=== PATIENT | male | born 1940 | race American Indian/Alaskan Native ===

== ENCOUNTER 2018-09-05 02:30 | Inpatient (IN) | payer MEDICARE ==
[2018-09-05] MEDS ORDERED: NACL 0.9% 1000 ML 1,000 ML IV ONE ×2 (02:48→02:49)
[2018-09-05] MEDS ORDERED: ZOSYN/NS 3.375GM/50ML 3.375 GM/50 ML BAG IV ONE (02:49)
[2018-09-05] MEDS ORDERED: ZOFRAN IV ONE (02:54)
--- NOTE | 2018-09-05 02:54 | Emergency Department Report ---
ED General Adult HPI - General Stated complaint: EMESIS Time Seen by Provider: 09/05/18 02:47 - History of Present Illness Initial comments: Patient is a 78 years old male with history of Parkinson disease, hypertension, diabetes, prostate cancer with chronic urinary retention and Tineo catheter in place. Patient brought from [facility] facility for coffee ground emesis. Patient was admitted to the senior care yesterday after he was dis charged from [facility]. Patient was admitted for encephalopathy secondary to Parkinson disease progression and found to have UTI. Patient is not communicating so most of the history is from patient medical record. Patient found to have a temperature of 99.9. "Sepsis initiated. - Related Data Home Medications Medication Instructions Recorded Confirmed Last Taken Aspirin [Aspirin EC] 325 mg PO DAILY 09/24/14 09/24/14 09/23/14 09:00 Atorvastatin Calcium [Lipitor] 20 mg PO QHS 09/24/14 09/24/14 Unknown Carbidopa/Levodopa 25 - 100 mg PO TID 09/24/14 09/24/14 Unknown [Carbidopa-Levodopa 25-100 Tab] Ciprofloxacin HCl [Ciprofloxacin 250 mg PO BID 09/24/14 09/24/14 09/23/14 17:00 TAB] Clopidogrel [Plavix] 75 mg PO QDAY 09/24/14 09/24/14 Unknown Glimepiride 2 mg PO BID 09/24/14 09/24/14 09/23/14 Lisinopril [Zestril TAB] 5 mg PO QDAY 09/24/14 09/24/14 Unknown Loratadine 10 mg PO DAILY 09/24/14 09/24/14 09/23/14 Metformin HCl 1,000 mg PO BID 09/24/14 09/24/14 09/23/14 09:00 Nitroglycerin [Nitrostat] 0.4 mg SL PRN PRN 09/24/14 09/24/14 Unknown oxyCODONE /ACETAMINOPHEN [Percocet 1 tab PO Q6HR PRN 09/24/14 09/24/14 09/23/14 17:00 5/325 mg] Allergies Allergy/AdvReac Type Severity Reaction Status Date / Time No Known Allergies Allergy Unverified 09/24/14 08:30 ED Review of Systems ROS: Stated complaint: EMESIS Other details as noted in HPI Comment: Unobtainable due to pts medical conditions ED Past Medical Hx - Past Medical History Hx Hypertension: Yes Hx Heart Attack/AMI: No Hx Diabetes: Yes Hx Liver Disease: No Hx Renal Disease: No Hx Arthritis: Yes (GENERALIZED) Hx Seizures: No Hx Kidney Stones: Yes Hx Asthma: No Hx HIV: No - Surgical History Hx Coronary Stent: Yes (2006/PTCA) - Social History Smoking Status: Former Smoker - Medications Home Medications: Home Medications Medication Instructions Recorded Confirmed Last Taken Type Aspirin [Aspirin EC] 325 mg PO DAILY 09/24/14 09/24/14 09/23/14 09:00 History Atorvastatin Calcium [Lipitor] 20 mg PO QHS 09/24/14 09/24/14 Unknown History Carbidopa/Levodopa 25 - 100 mg PO TID 09/24/14 09/24/14 Unknown History [Carbidopa-Levodopa 25-100 Tab] Ciprofloxacin HCl [Ciprofloxacin 250 mg PO BID 09/24/14 09/24/14 09/23/14 17:00 History TAB] Clopidogrel [Plavix] 75 mg PO QDAY 09/24/14 09/24/14 Unknown History Glimepiride 2 mg PO BID 09/24/14 09/24/14 09/23/14 History Lisinopril [Zestril TAB] 5 mg PO QDAY 09/24/14 09/24/14 Unknown History Loratadine 10 mg PO DAILY 09/24/14 09/24/14 09/23/14 History Metformin HCl 1,000 mg PO BID 09/24/14 09/24/14 09/23/14 09:00 History Nitroglycerin [Nitrostat] 0.4 mg SL PRN PRN 09/24/14 09/24/14 Unknown History oxyCODONE /ACETAMINOPHEN [Percocet 1 tab PO Q6HR PRN 09/24/14 09/24/14 09/23/14 17:00 History 5/325 mg] ED Physical Exam - General General appearance: obtunded - Head Head exam: Present: atraumatic, normocephalic, normal inspection - Eye Eye exam: Present: normal appearance - ENT ENT exam: Present: mucous membranes dry - Neck Neck exam: Present: normal inspection, full ROM. Absent: tenderness, meningismus, lymphadenopathy, thyromegaly - Respiratory Respiratory exam: Present: normal lung sounds bilaterally - Cardiovascular Cardiovascular Exam: Present: regular rate, normal rhythm, normal heart sounds - GI/Abdominal GI/Abdominal exam: Present: soft, normal bowel sounds. Absent: distended, tenderness, guarding, rebound, rigid, organomegaly, mass, bruit, pulsatile mass, hernia - Rectal Rectal exam: Present: normal inspection, normal rectal tone, heme (-) stool - Extremities Exam Extremities exam: Present: normal inspection - Back Exam Back exam: Present: normal inspection, full ROM. Absent: CVA tenderness (R), CVA tenderness (L), muscle spasm, paraspinal tenderness, vertebral tenderness - Neurological Exam Neurological exam: Present: altered - Skin Skin exam: Present: warm, dry ED Course Vital Signs 09/05/18 09/05/18 09/05/18 02:39 03:00 03:09 Temperature 99.6 F Pulse Rate 97 H 94 H Respiratory 26 H 20 Rate Blood Pressure 126/76 147/82 142/75 O2 Sat by Pulse 99 Oximetry 09/05/18 09/05/18 09/05/18 03:30 04:00 04:23 Temperature Pulse Rate 103 H 104 H Respiratory 29 H 21 20 Rate Blood Pressure 118/66 141/89 O2 Sat by Pulse Oximetry ED Medical Decision Making - Lab Data Result diagrams: 09/05/18 03:01 09/05/18 03:01 - Radiology Data Radiology results: report reviewed Chest x-ray is unremarkable. - Medical Decision Making Patient is a 78 years old male with history of Parkinson disease, hypertension, diabetes, prostate cancer with chronic urinary retention and Tineo catheter in place. Patient brought from [facility] facility for coffee ground emesis. Patient was admitted to the senior care yesterday after he was discharged from [place]. Patient was admitted for encephalopathy secondary to Parkinson disease progression and found to have UTI. Patient is not communicating so most of the history is from patient medical record. Patient found to have a temperature of 99.9. "Sepsis initiated. The ground emesis observed in the ER. Stool Hemoccult is negative. Labs reviewed and is unremarkable. Patient received Zosyn FOR suspected sepsis. Protonix drip started. I discussed the patient is Dr. Dudley, gastroenterologis t. I discussed the patient is Dr. Janay France, she agreed to admit the patient to medical service. Critical Care Time: Yes Critical care time in (mins) excluding proc time.: 30 Critical care attestation.: If time is entered above; I have spent that time in minutes in the direct care of this critically ill patient, excluding procedure time. ED Disposition Clinical Impression: GI bleed, Sepsis, UTI (urinary tract infection) Disposition: OP ADMIT IP TO THIS HOSP Is pt being admited?: Yes Condition: Stable Referrals: PRIMARY CARE, [Primary Care Provider] - 3-5 Days
--- NOTE | 2018-09-05 03:12 | XRay Report ---
CHEST 1 VIEW 09/05/2018 2:51 AM INDICATION / CLINICAL INFORMATION: Sepsis. COMPARISON: None available. FINDINGS: SUPPORT DEVICES: None. HEART / MEDIASTINUM: No significant abnormality. LUNGS / PLEURA: The lungs are clear with reduced volumes. No significant pleural effusion. No pneumot horax. ADDITIONAL FINDINGS: No significant additional findings. IMPRESSION: No acute findings. Signer Name: Guillermo Richard MD Signed: 09/05/2018 3:08 AM Workstation Name: [id number]
[2018-09-05 03:20] LABS: Basophils % (Auto) 0.3 % (0.0-1.8); Eosinophils # (Auto) 0.1 K/mm3 (0.0-0.4); Eosinophils % (Auto) 1.1 % (0.0-4.3); Hematocrit 39.7 % (35.5-45.6); Hemoglobin 13.2 gm/dl (11.8-15.2); Lymphocytes # (Auto) 0.6 K/mm3 (1.2-5.4); Mean Corpuscular HGB Conc 33 % (32-34); Mean Corpuscular Volume 86 fl (84-94); Monocytes # (Auto) 0.7 K/mm3 (0.0-0.8); Monocytes % (Auto) 7.3 % (0.0-7.3); Platelet Count 238 K/mm3 (140-440); Red Cell Distribution Width 13.9 % (13.2-15.2)
[2018-09-05 03:35] LABS: Alanine Aminotransferase 16 units/L (7-56); Albumin 3.5 g/dL (3.9-5); BUN/Creatinine Ratio 24; Blood Urea Nitrogen 24 mg/dL (9-20); Calcium 8.6 mg/dL (8.4-10.2); Hemolysis Index 3
[2018-09-05 04:31] LABS: Bilirubin,Urine NEG (Negative); Blood,Urine LG (Negative); Color,Urine Yellow (Yellow); Mucus,Urine 3+ /HPF
[2018-09-05 04:32] LABS: RBC,Urine > 182.0 /HPF (0.0-6.0); WBC,Urine > 182.0 /HPF (0.0-6.0)
[2018-09-05] MEDS ORDERED: ZOFRAN IV PRN (05:02)
[2018-09-05] MEDS ORDERED: TYLENOL PO PRN (05:02)
[2018-09-05] MEDS ORDERED: SODIUM CHLORIDE FLUSH SYRINGE 10 ML IV PRN (05:02)
--- NOTE | 2018-09-05 05:05 | History and Physical Report ---
History of Present Illness History of present illness: 78 year old man with Parkinsons, hypertension, diabetes, prostate cancer, CAD was brought to the ER because he was noted to have coffee ground emesis. He was just discharged from [facility], he was treated for Parkinsons. History per family, ROS unobtainable PAST MEDICAL HISTORY: Parkinsons, hypertension, diabetes, prostate cancer, CAD PAST SURGICAL HISTORY: None SOCIAL HISTORY: No alcohol, denies tobacco, drugs FAMILY HISTORY: Hypertension Medications and Allergies Allergies Allergy/AdvReac Type Severity Reaction Status Date / Time No Known Allergies Allergy Unverified 09/24/14 08:30 Home Medications Medication Instructions Recorded Confirmed Last Taken Type Acetaminophen 325 mg PO TID PRN 09/05/18 09/05/18 Unknown History Aspirin [Aspirin BABY CHEW TAB] 81 mg PO QDAY 09/05/18 09/05/18 Unknown History AtorvaSTATin [Lipitor] 20 mg PO QHS 09/05/18 09/05/18 Unknown History Carbidopa/Levodopa 25-100 [Sinemet] 1 each PO QHS 09/05/18 09/05/18 Unknown History Carbidopa/Levodopa [Carbidopa-Levo 1 each PO TID 09/05/18 09/05/18 Unknown History 25-100 mg Odt] Cholecalciferol (Vitamin D3) 50,000 unit PO QDAY 09/05/18 09/05/18 Unknown History [Vitamin D3 50,000UNIT CAP] Cyanocobalamin (Vitamin B-12) 1,000 mcg PO QDAY 09/05/18 09/05/18 Unknown History [Vitamin B-12] Docusate Sodium [Colace] 100 mg PO BID PRN 09/05/18 09/05/18 Unknown History Finasteride [Proscar] 5 mg PO QDAY 09/05/18 09/05/18 Unknown History Folic Acid [Folvite] 1 mg PO QDAY 09/05/18 09/05/18 Unknown History Multivitamin Tab [Multiple Vitamin 1 each PO QDAY 09/05/18 09/05/18 Unknown History TAB (Theragran)] Nutritional Supplement [Ensure] 113 g PO TID 09/05/18 09/05/18 Unknown History Sennosides [Senokotxtra] 17.2 mg PO QHS 09/05/18 09/05/18 Unknown History Tamsulosin [Flomax] 0.4 mg PO QDAY 09/05/18 09/05/18 Unknown History Active Meds: Active Medications Pantoprazole Sodium 80 mg/ (Sodium Chloride) 100 mls @ 10 mls/hr IV DIRECT ROHIT Exam - Physical Exam Narrative exam: Gen. appearance: Patient lying in bed, no apparent distress HEENT: Normocephalic, atraumatic, pupils equally round and reactive to light, extraocular movement intact, and no sclericterus,. No JVD or thyromegaly or nodule,neck supple, no carotid bruit ,mucous membranes moist, no exudate or erythema Heart: S1, S2, regular rate and rhythm Lungs: Clear bilaterally, breathing comfortable Abdomen: Positive bowel sounds, non-tender, nondistended, no organomegaly Extremity:no edema cyanosis, clubbing Skin: no rash, dry, warm Neuro: difficult to assess stool: heme negative - Constitutional Vitals: Temp Pulse Resp BP Pulse Ox 99.6 F 104 H 20 141/89 99 09/05/18 03:09 09/05/18 04:00 09/05/18 04:23 09/05/18 04:00 09/05/18 03:09 Results - Labs CBC & Chem 7: 09/06/18 04:24 09/06/18 04:24 Labs: Abnormal lab results 09/05/18 09/05/18 09/05/18 Range/Units 03:01 03:01 04:10 Lymph % (Auto) 7.0 L (13.4-35.0) % Lymph # 0.6 L (1.2-5.4) K/mm3 Seg Neutrophils % 84.3 H (40.0-70.0) % Seg Neutrophils # 7.8 H (1.8-7.7) K/mm3 Sodium 136 L (137-145) mmol/L BUN 24 H (9-20) mg/dL Glucose 157 H (75-100) mg/dL Albumin 3.5 L (3.9-5) g/dL Urine WBC (Auto) > 182.0 H (0.0-6.0) /HPF - Imaging and Cardiology EKG: image reviewed Chest x-ray: report reviewed Assessment and Plan Assessment GI bleed, none noted here UTI Parkinsons hypertension diabetes prostate cancer CAD Plan Admit to medicine GI was consulted to see the patient, hemoglobin stable Check fingersticks, hold insulin Start IV fluidm, start IV rocephin DVT prophaaxis
[2018-09-05 05:45] LABS: INR 1.22 (0.87-1.13)
[2018-09-05 05:46] LABS: Partial Thromboplastin Time 33.2 Sec. (24.2-36.6)
[2018-09-05] MEDS: ROCEPHIN/NS 1 GM/50 ML 1 GM/50 ML BAG IV SCH (05:49)
[2018-09-05] MEDS ORDERED: ATIVAN PO PRN (10:30)
[2018-09-05] MEDS: SODIUM CHLORIDE FLUSH SYRINGE 10 ML IV SCH (10:41)
[2018-09-05] MEDS: PROTONIX 80 MG in NACL 0.9% 100 ML IV SCH (16:55)
--- NOTE | 2018-09-05 20:39 | Event Note ---
Date: 09/05/18 He should 78-year-old with a history of Parkinson's disease hypertension diabetes prostate cancer and coronary artery disease. Patient presented with coffee-ground emesis recently DC'd from [facility] just last night. Patient was treated there for Parkinson-like symptoms. Now presents wart appears to be possible upper GI bleed. Patient H&H has remained stable hemodynamically patient is remaining stable as well. Patient is scheduled for EGD in the a.m. Also found to have UTI with increased white blood cells in urine and treated for UTI. Currently resting comfortably hemodynamically stable. Patient hospital course was complicated by agitation in which he was given Ativan and begin to rest comfortably
--- NOTE | 2018-09-05 22:19 | Gastroenterology Consultation ---
History of Present Illness - Reason for Consult Consult date: 09/05/18 (Patient seen at approximately 10AM) Coffee ground emesis Requesting physician: ALAYNA DAVALOS - History of Present Illness History obtained from review of discharge paperwork from [facility], chart, and talking with family This is a 78 year old gentleman with Parkinsons, hypertension, diabetes, p rostate cancer, CAD was brought to the ER because he was noted to have coffee ground emesis. He was just discharged from [facility] after admission for AMS, no blood thinners, very distant history PUD Family and nursing denies melena, Hgb normal, vitals stable PAST MEDICAL HISTORY: Parkinsons, hypertension, diabetes, prostate cancer, CAD, history PUD PAST SURGICAL HISTORY: None SOCIAL HISTORY: No alcohol, denies tobacco, drugs FAMILY HISTORY: Hypertension Medications and Allergies Allergies Allergy/AdvReac Type Severity Reaction Status Date / Time No Known Allergies Allergy Unverified 09/24/14 08:30 Home Medications Medication Instructions Recorded Confirmed Last Taken Type Acetaminophen 325 mg PO TID PRN 09/05/18 09/05/18 Unknown History Aspirin [Aspirin BABY CHEW TAB] 81 mg PO QDAY 09/05/18 09/05/18 Unknown History AtorvaSTATin [Lipitor] 20 mg PO QHS 09/05/18 09/05/18 Unknown History Carbidopa/Levodopa 25-100 [Sinemet] 1 each PO QHS 09/05/18 09/05/18 Unknown History Carbidopa/Levodopa [Carbidopa-Levo 1 each PO TID 09/05/18 09/05/18 Unknown History 25-100 mg Odt] Cholecalciferol (Vitamin D3) 50,000 unit PO QDAY 09/05/18 09/05/18 Unknown History [Vitamin D3 50,000UNIT CAP] Cyanocobalamin (Vitamin B-12) 1,000 mcg PO QDAY 09/05/18 09/05/18 Unknown History [Vitamin B-12] Docusate Sodium [Colace] 100 mg PO BID PRN 09/05/18 09/05/18 Unknown History Finasteride [Proscar] 5 mg PO QDAY 09/05/18 09/05/18 Unknown History Folic Acid [Folvite] 1 mg PO QDAY 09/05/18 09/05/18 Unknown History Multivitamin Tab [Multiple Vitamin 1 each PO QDAY 09/05/18 09/05/18 Unknown History TAB (Theragran)] Nutritional Supplement [Ensure] 113 g PO TID 09/05/18 09/05/18 Unknown History Sennosides [Senokotxtra] 17.2 mg PO QHS 09/05/18 09/05/18 Unknown History Tamsulosin [Flomax] 0.4 mg PO QDAY 09/05/18 09/05/18 Unknown History Active Meds: Active Medications Acetaminophen (Tylenol) 650 mg PO Q4H PRN PRN Reason: Pain MILD(1-3)/Fever >100.5/MEZA Pantoprazole Sodium 80 mg/ (Sodium Chloride) 100 mls @ 10 mls/hr IV DIRECT ROHIT Last Admin: 09/05/18 16:55 Dose: 8 mg/hr, 10 mls/hr Documented by: Sodium Chloride (Nacl 0.9% 1000 Ml) 1,000 mls @ 75 mls/hr IV DIRECT ROHIT Ceftriaxone Sodium (Rocephin/Ns 1 Gm/50 Ml) 1 gm in 50 mls @ 100 mls/hr IV Q 24HR ROHIT; Protocol Last Admin: 09/05/18 05:49 Dose: 100 mls/hr Documented by: Lorazepam (Ativan) 1 mg PO Q6H PRN PRN Reason: Agitation Last Admin: 09/05/18 10:24 Dose: 1 mg Documented by: Ondansetron HCl (Zofran) 4 mg IV Q8H PRN PRN Reason: Nausea And Vomiting Sodium Chloride (Sodium Chloride Flush Syringe 10 Ml) 10 ml IV BID ROHIT Last Admin: 09/05/18 10:41 Dose: 10 ml Documented by: Sodium Chloride (Sodium Chloride Flush Syringe 10 Ml) 10 ml IV PRN PRN PRN Reason: LINE FLUSH Review of Systems - Review of Systems ROS unobtainable: due to mental status Exam - Constitutional Vital Signs: Temp Pulse Resp BP Pulse Ox 98.0 F 97 H 18 144/84 100 09/05/18 17:47 09/05/18 17:47 09/05/18 17:47 09/05/18 17:47 09/05/18 17:47 General appearance: no acute distress - EENT Eyes: other (no scleral icterus) ENT: clear oral mucosa - Neck Neck: normal ROM - Respiratory Respiratory effort: normal - Cardiovascular Rhythm: regular - Gastrointestinal General gastrointestinal: Present: soft - Integumentary Integumentary: Present: dry - Neurologic Neurological: disoriented - Psychiatric Psychiatric: other (unable to assess due to AMS) - Labs CBC & Chem 7: 09/05/18 03:01 09/05/18 03:01 Lab Results: Laboratory Results - last 24 hr 09/05/18 09/05/18 09/05/18 03:01 03:01 03:01 WBC 9.3 RBC 4.60 Hgb 13.2 Hct 39.7 MCV 86 MCH 29 MCHC 33 RDW 13.9 Plt Count 238 Lymph % (Auto) 7.0 L [place] % (Auto) 7.3 Eos % (Auto) 1.1 Baso % (Auto) 0.3 Lymph # 0.6 L [place] # 0.7 Eos # 0.1 Baso # 0.0 Seg Neutrophils % 84.3 H Seg Neutrophils # 7.8 H PT INR APTT Sodium 136 L Potassium 4.8 Chloride 98.9 Carbon Dioxide 26 Anion Gap 16 BUN 24 H Creatinine 1.0 Estimated GFR > 60 BUN/Creatinine Ratio 24 Glucose 157 H POC Glucose Lactic Acid 1.40 Calcium 8.6 Total Bilirubin 0.30 AST 18 ALT 16 Alkaline Phosphatase 50 Total Protein 7.0 Albumin 3.5 L Albumin/Globulin Ratio 1.0 Urine Color Urine Turbidity Urine pH Ur Specific [place] Urine Protein Urine Glucose (UA) Urine Ketones Urine Blood Urine Nitrite Urine Bilirubin Urine Urobilinogen Ur Leukocyte Esterase Urine WBC (Auto) Urine RBC (Auto) U Epithel Cells (Auto) Urine Mucus Blood Type Antibody Screen 09/05/18 09/05/18 09/05/18 04:10 04:47 04:47 WBC RBC Hgb Hct MCV MCH MCHC RDW Plt Count Lymph % (Auto) [place] % (Auto) Eos % (Auto) Baso % (Auto) Lymph # [place] # Eos # Baso # Seg Neutrophils % Seg Neutrophils # PT 15.1 H INR 1.22 H APTT 33.2 Sodium Potassium Chloride Carbon Dioxide Anion Gap BUN Creatinine Estimated GFR BUN/Creatinine Ratio Glucose POC Glucose Lactic Acid 1.30 Calcium Total Bilirubin AST ALT Alkaline Phosphatase Total Protein Albumin Albumin/Globulin Ratio Urine Color Yellow Urine Turbidity Cloudy Urine pH 5.0 Ur Specific [place] 1.024 Urine Protein 30 mg/dl Urine Glucose (UA) Neg Urine Ketones Tr Urine Blood Lg Urine Nitrite Neg Urine Bilirubin Neg Urine Urobilinogen 4.0 Ur Leukocyte Esterase Lg Urine WBC (Auto) > 182.0 H Urine RBC (Auto) > 182.0 U Epithel Cells (Auto) < 1.0 Urine Mucus 3+ Blood Type Antibody Screen 09/05/18 09/05/18 09/05/18 04:55 14:06 17:55 WBC RBC Hgb Hct MCV MCH MCHC RDW Plt Count Lymph % (Auto) [place] % (Auto) Eos % (Auto) Baso % (Auto) Lymph # [place] # Eos # Baso # Seg Neutrophils % Seg Neutrophils # PT INR APTT Sodium Potassium Chloride Carbon Dioxide Anion Gap BUN Creatinine Estimated GFR BUN/Creatinine Ratio Glucose POC Glucose 113 H 134 H Lactic Acid Calcium Total Bilirubin AST ALT Alkaline Phosphatase Total Protein Albumin Albumin/Globulin Ratio Urine Color Urine Turbidity Urine pH Ur Specific [place] Urine Protein Urine Glucose (UA) Urine Ketones Urine Blood Urine Nitrite Urine Bilirubin Urine Urobilinogen Ur Leukocyte Esterase Urine WBC (Auto) Urine RBC (Auto) U Epithel Cells (Auto) Urine Mucus Blood Type O POSITIVE Antibody Screen Negative Assessment and Plan Patient without clinical evidence for GI bleed currently, hgb normal, and patien t with multiple medical comorbidities so higher risk for endoscopic intervention. Therefore recommend PPI and monitor clinically and repeat HGB in AM. If no clinical bleeding and Hgb stable then may discharge 09/06 without any need for GI followup If patient has GI bleeding with recommend EGD - Patient Problems (1) Coffee ground emesis Current Visit: Yes Status: Acute
[2018-09-06] MEDS: PROTONIX 80 MG in NACL 0.9% 100 ML IV SCH ×2 (05:12→19:32)
[2018-09-06 05:40] LABS: Basophils % (Auto) 0.7 % (0.0-1.8); Eosinophils # (Auto) 0.4 K/mm3 (0.0-0.4); Eosinophils % (Auto) 9.2 % (0.0-4.3); Hematocrit 33.5 % (35.5-45.6); Hemoglobin 11.2 gm/dl (11.8-15.2); Lymphocytes # (Auto) 0.7 K/mm3 (1.2-5.4); Mean Corpuscular HGB Conc 34 % (32-34); Mean Corpuscular Volume 86 fl (84-94); Monocytes # (Auto) 0.5 K/mm3 (0.0-0.8); Monocytes % (Auto) 10.6 % (0.0-7.3); Platelet Count 233 K/mm3 (140-440); Red Blood Count 3.89 M/mm3 (3.65-5.03); Red Cell Distribution Width 13.9 % (13.2-15.2)
[2018-09-06 05:59] LABS: BUN/Creatinine Ratio 17; Blood Urea Nitrogen 17 mg/dL (9-20); Calcium 8.1 mg/dL (8.4-10.2); Hemolysis Index 43
[2018-09-06] MEDS: ROCEPHIN/NS 1 GM/50 ML 1 GM/50 ML BAG IV SCH (10:57)
[2018-09-06] MEDS: SODIUM CHLORIDE FLUSH SYRINGE 10 ML IV SCH ×3 (10:58→21:52)
--- NOTE | 2018-09-06 12:59 | Progress Note ---
Assessment and Plan Assessment and plan: Coffee-ground emesis. Patient with no evidence of GI bleeding currently. GI evaluated the patient in consultation. GI feels that given multiple medical comorbidities, pt higher risk for endoscopic intervention. Therefore GI recommends PPI and monitor clinically and repeat HGB in AM. Nausea and vomiting. Resolved. Hypertension. Resume antihypertensive medications. Diabetes mellitus type 2. Continue Accu-Cheks and sliding scale regular insulin History of prostate cancer. Coronary artery disease. Parkinson's disease. PT/OT. Disposition. Anticipate discharge in a.m. History Interval history: This is a 78 year old gentleman with Parkinsons, hypertension, diabetes, prostate cancer, CAD was brought to the ER because he was noted to have coffee ground emesis. He was just discharged from [place] after admission for AMS, no blood thinners, very distant history PUD Family and nursing denies melena, Hospitalist Physical - Constitutional Vitals: Temp Pulse Resp BP Pulse Ox 98.1 F 76 18 95/75 99 09/06/18 04:03 09/06/18 07:50 09/06/18 04:03 09/06/18 07:50 09/06/18 10:36 General appearance: Present: no acute distress, well-nourished - EENT Eyes: Present: PERRL, EOM intact ENT: hearing intact, clear oral mucosa, dentition normal - Neck Neck: Present: supple, normal ROM - Respiratory Respiratory effort: normal Respiratory: bilateral: CTA - Cardiovascular Rhythm: regular Heart Sounds: Present: S1 & S2. Absent: gallop, rub - Extremities Extremities: no ischemia, No edema, Full ROM - Abdominal General gastrointestinal: soft, non-tender, non-distended, normal bowel sounds - Integumentary Integumentary: Present: clear, warm, dry - Neurologic Neurologic: CNII-XII intact, moves all extremities Results - Labs CBC & Chem 7: 09/06/18 04:24 09/06/18 04:24 Labs: Laboratory Last Values WBC 4.7 K/mm3 (4.5-11.0) 09/06/18 04:24 RBC 3.89 M/mm3 (3.65-5.03) 09/06/18 04:24 Hgb 11.2 gm/dl (11.8-15.2) L 09/06/18 04:24 Hct 33.5 % (35.5-45.6) L D 09/06/18 04:24 MCV 86 fl (84-94) 09/06/18 04:24 MCH 29 pg (28-32) 09/06/18 04:24 MCHC 34 % (32-34) 09/06/18 04:24 RDW 13.9 % (13.2-15.2) 09/06/18 04:24 Plt Count 233 K/mm3 (140-440) 09/06/18 04:24 Lymph % (Auto) 15.0 % (13.4-35.0) 09/06/18 04:24 [place] % (Auto) 10.6 % (0.0-7.3) H 09/06/18 04:24 Eos % (Auto) 9.2 % (0.0-4.3) H 09/06/18 04:24 Baso % (Auto) 0.7 % (0.0-1.8) 09/06/18 04:24 Lymph # 0.7 K/mm3 (1.2-5.4) L 09/06/18 04:24 [place] # 0.5 K/mm3 (0.0-0.8) 09/06/18 04:24 Eos # 0.4 K/mm3 (0.0-0.4) 09/06/18 04:24 Baso # 0.0 K/mm3 (0.0-0.1) 09/06/18 04:24 Seg Neutrophils % 64.5 % (40.0-70.0) 09/06/18 04:24 Seg Neutrophils # 3.0 K/mm3 (1.8-7.7) 09/06/18 04:24 PT 15.1 Sec. (12.2-14.9) H 09/05/18 04:47 INR 1.22 (0.87-1.13) H 09/05/18 04:47 APTT 33.2 Sec. (24.2-36.6) 09/05/18 04:47 Sodium 138 mmol/L (137-145) 09/06/18 04:24 Potassium 4.5 mmol/L (3.6-5.0) 09/06/18 04:24 Chloride 105.0 mmol/L (98-107) 09/06/18 04:24 Carbon Dioxide 22 mmol/L (22-30) 09/06/18 04:24 16 mmol/L 09/06/18 04:24 BUN 17 mg/dL (9-20) 09/06/18 04:24 1.0 mg/dL (0.8-1.5) 09/06/18 04:24 Estimated GFR > 60 ml/min 09/06/18 04:24 17 % 09/06/18 04:24 Glucose 115 mg/dL (75-100) H 09/06/18 04:24 POC Glucose 133 (70-105) H 09/06/18 11:11 Lactic Acid 1.30 mmol/L (0.7-2.0) 09/05/18 04:47 Calcium 8.1 mg/dL (8.4-10.2) L 09/06/18 04:24 0.30 mg/dL (0.1-1.2) 09/05/18 03:01 AST 18 units/L (5-40) 09/05/18 03:01 ALT 16 units/L (7-56) 09/05/18 03:01 50 units/L (35-129) 09/05/18 03:01 7.0 g/dL (6.3-8.2) 09/05/18 03:01 3.5 g/dL (3.9-5) L 09/05/18 03:01 1.0 % 09/05/18 03:01 Yellow (Yellow) 09/05/18 04:10 Cloudy (Clear) 09/05/18 04:10 5.0 (5.0-7.0) 09/05/18 04:10 Ur Specific [place] 1.024 (1.003-1.030) 09/05/18 04:10 30 mg/dl mg/dL (Negative) 09/05/18 04:10 Neg mg/dL (Negative) 09/05/18 04:10 Tr mg/dL (Negative) 09/05/18 04:10 Lg (Negative) 09/05/18 04:10 Neg (Negative) 09/05/18 04:10 Neg (Negative) 09/05/18 04:10 4.0 mg/dL (<2.0) 09/05/18 04:10 Ur Leukocyte Esterase Lg (Negative) 09/05/18 04:10 > 182.0 /HPF (0.0-6.0) H 09/05/18 04:10 > 182.0 /HPF (0.0-6.0) 09/05/18 04:10 U Epithel Cells (Auto) < 1.0 /HPF (0-13.0) 09/05/18 04:10 3+ /HPF 09/05/18 04:10 Blood Type O POSITIVE 09/05/18 04:55 Antibody Screen Negative 09/05/18 04:55 Active Medications - Current Medications Current Medications: Generic Name Dose Route Start Last Admin Trade Name Freq PRN Reason Stop Dose Admin Acetaminophen 650 mg 09/05/18 05:02 Tylenol PO Q4H PRN Pain MILD(1-3)/Fever >100.5/MEZA Pantoprazole Sodium 80 mg/ 100 mls @ 10 mls/hr 09/05/18 04:00 09/06/18 05:12 Sodium Chloride IV 8 mg/hr DIRECT ROIHT 10 mls/hr Administration 8 MG/HR Sodium Chloride 1,000 mls @ 75 mls/hr 09/05/18 06:00 Nacl 0.9% 1000 Ml IV DIRECT ROHIT Ceftriaxone Sodium 1 gm in 50 mls @ 100 mls/hr 09/05/18 05:23 09/06/18 10:57 Rocephin/Ns 1 Gm/50 Ml IV 100 mls/hr Q24HR ROHIT Administration Protocol Lorazepam 1 mg 09/05/18 10:30 09/05/18 10:24 Ativan PO 1 mg Q6H PRN Administration Agitation Ondansetron HCl 4 mg 09/05/18 05:02 Zofran IV Q8H PRN Nausea And Vomiting Sodium Chloride 10 ml 09/05/18 10:00 09/06/18 10:59 Sodium Chloride Flush Syringe 10 Ml IV Not Given BID ROHIT Sodium Chloride 10 ml 09/05/18 05:02 Sodium Chloride Flush Syringe 10 Ml IV PRN PRN LINE FLUSH
--- NOTE | 2018-09-06 13:33 | Gastroenterology Progress Note ---
Assessment and Plan Patient without clinical evidence for GI bleed currently, hgb with mild decline but suspect equilibration, given absolutely no overt bleeding and patient with multiple medical comorbidities so higher risk for endoscopic intervention may di justino today - Patient Problems (1) Coffee ground emesis Current Visit: Yes Status: Acute Subjective Date of service: 09/06/18 Principal diagnosis: coffee ground emesis Interval history: spoke with nurse (family not at bedside), no overt bleeding no melena no emesis Objective - Constitutional Vitals: Temp Pulse Resp BP Pulse Ox 98.1 F 76 18 95/75 99 09/06/18 04:03 09/06/18 07:50 09/06/18 04:03 09/06/18 07:50 09/06/18 10:36 General appearance: no acute distress - Respiratory Respiratory effort: normal - Gastrointestinal General gastrointestinal: Present: soft - Labs CBC & Chem 7: 09/06/18 04:24 09/06/18 04:24 Labs: Laboratory Results - last 24 hr 09/05/18 09/05/18 09/06/18 14:06 17:55 04:24 WBC 4.7 RBC 3.89 Hgb 11.2 L Hct 33.5 L D MCV 86 MCH 29 MCHC 34 RDW 13.9 Plt Count 233 Lymph % (Auto) 15.0 [place] % (Auto) 10.6 H Eos % (Auto) 9.2 H Baso % (Auto) 0.7 Lymph # 0.7 L [place] # 0.5 Eos # 0.4 Baso # 0.0 Seg Neutrophils % 64.5 Seg Neutrophils # 3.0 Sodium Potassium Chloride Carbon Dioxide Anion Gap BUN Creatinine Estimated GFR BUN/Creatinine Ratio Glucose POC Glucose 113 H 134 H Calcium 09/06/18 09/06/18 09/06/18 04:24 07:56 11:11 WBC RBC Hgb Hct MCV MCH MCHC RDW Plt Count Lymph % (Auto) [place] % (Auto) Eos % (Auto) Baso % (Auto) Lymph # [place] # Eos # Baso # Seg Neutrophils % Seg Neutrophils # Sodium 138 Potassium 4.5 Chloride 105.0 Carbon Dioxide 22 Anion Gap 16 BUN 17 Creatinine 1.0 Estimated GFR > 60 BUN/Creatinine Ratio 17 Glucose 115 H POC Glucose 108 H 133 H Calcium 8.1 L
[2018-09-06] MEDS: NACL 0.9% 1000 ML 1,000 ML IV SCH (21:52)
--- NOTE | 2018-09-07 07:38 | Discharge Summary ---
Providers - Providers Date of Admission: 09/05/18 05:11 Date of discharge: 09/07/18 Attending physician: MARLINE HUBER 09/05/18 04:29 Consult to Physician [CONS] Stat Comment: Consulting Provider: JAYLEEN GUARDADO Physician Instructions: Reason For Exam: GI BLEED 09/05/18 10:24 Speech Therapy Evaluation and Treat [CONS] Routine Reason For Exam: . Primary care physician: [employer] Hospitalization Reason for admission: ? coffee ground emesis Condition: Stable Hospital course: This is a 78 year old gentleman with Parkinsons, hypertension, diabetes, prostate cancer, CAD was brought to the ER because he was noted to have coffee ground emesis. He was just discharged from [place] after admission for AMS, no blood thinners, very distant history PUD. Patient reportedly [facility] to the [facility] and had questionable coffee-ground emesis and was transported to our facility for further evaluation. Family and nursing denied melena, Hgb remained normal throughout hospitalization. GI feels that given multiple medical comorbidities, pt higher risk for endoscopic intervention. GI felt the patient could discharge and have further follow-up as an outpatient. Dedicated discharge time 32 minutes. Disposition: DC/TX-03 SNF W [facility] Time spent for discharge: 32 - Discharge Diagnoses (1) Coffee ground emesis Status: Acute Core Measure Documentation - Palliative Care Palliative Care/ Comfort Measures: Not Applicable - Core Measures Any of the following diagnoses?: none Exam - Constitutional Vitals: Temp Pulse Resp BP Pulse Ox 99.8 F H 95 H 18 137/75 95 09/07/18 03:42 09/07/18 03:42 09/07/18 03:42 09/07/18 03:42 09/07/18 03:42 General appearance: Present: no acute distress, well-nourished - EENT Eyes: Present: PERRL ENT: hearing intact, clear oral mucosa - Neck Neck: Present: supple, normal ROM - Respiratory Respiratory effort: normal Respiratory: bilateral: CTA - Cardiovascular Heart Sounds: Present: S1 & S2. Absent: rub, click - Extremities Extremities: pulses symmetrical, No edema Peripheral Pulses: within normal limits - Abdominal General gastrointestinal: Present: soft, non-tender, non-distended, normal bowel sounds Male genitourinary: Present: normal - Integumentary Integumentary: Present: clear, warm, dry - Musculoskeletal Musculoskeletal: gait normal, strength equal bilaterally - Psychiatric Psychiatric: appropriate mood/affect, intact judgment & insight - Neurologic Neurologic: CNII-XII intact, moves all extremities Plan Weight Bearing Status: Weight Bear as Tolerated Diet: regular Follow up with: PRIMARY CARE,MD [Primary Care Provider] - 3-5 Days Forms: Accompanied Note
[2018-09-07] MEDS: NACL 0.9% 1000 ML 1,000 ML IV SCH (09:35)
[2018-09-07] MEDS: SODIUM CHLORIDE FLUSH SYRINGE 10 ML IV SCH ×2 (09:35→21:17)
[2018-09-07] MEDS: PROTONIX PO SCH (09:35)
[2018-09-07] MEDS: ROCEPHIN/NS 1 GM/50 ML 1 GM/50 ML BAG IV SCH (09:35)
--- NOTE | 2018-09-07 16:06 | Gastroenterology Progress Note ---
Assessment and Plan Patient without clinical evidence for GI bleed currently, hgb stable, may DC home - Patient Problems (1) Coffee ground emesis Current Visit: Yes Status: Acute Subjective Date of service: 09/07/18 Principal diagnosis: coffee ground emesis Interval history: spoke with daughter at bedside, no overt bleeding no melena no emesis Objective - Constitutional Vitals: Temp Pulse Resp BP Pulse Ox 98.6 F 87 18 143/81 100 09/07/18 09:21 09/07/18 12:29 09/07/18 09:21 09/07/18 09:21 09/07/18 09:21 General appearance: no acute distress - Gastrointestinal General gastrointestinal: Present: soft - Labs CBC & Chem 7: 09/06/18 04:24 09/06/18 04:24 Labs: Laboratory Results - last 24 hr 09/06/18 09/07/18 09/07/18 20:54 07:27 12:46 POC Glucose 80 104 122 H
[2018-09-08] MEDS: SODIUM CHLORIDE FLUSH SYRINGE 10 ML IV SCH ×2 (10:10→21:04)
[2018-09-08] MEDS: ROCEPHIN/NS 1 GM/50 ML 1 GM/50 ML BAG IV SCH (10:10)
[2018-09-08] MEDS: PROTONIX PO SCH (10:10)
--- NOTE | 2018-09-08 12:02 | Progress Note ---
Assessment and Plan Assessment and plan: Coffee-ground emesis. Patient with no evidence of GI bleeding currently. GI evaluated the patient in consultation. GI feels that given multiple medical comorbidities, pt higher risk for endoscopic intervention. Therefore GI recommends PPI and monitor clinically and repeat HGB in AM. Nausea and vomiting. Resolved. Hypertension. Resume antihypertensive medications. Diabetes mellitus type 2. Continue Accu-Cheks and sliding scale regular insulin History of prostate cancer. Coronary artery disease. Parkinson's disease. PT/OT. Disposition. Anticipate discharge Monday to [place] - Patient Problems (1) Coffee ground emesis Current Visit: Yes Status: Acute History Interval history: This is a 78 year old gentleman with Parkinsons, hypertension, diabetes, prostat e cancer, CAD was brought to the ER because he was noted to have coffee ground emesis. He was just discharged from [place] after admission for AMS, no blood thinners, very distant history PUD Family and nursing denies melena, Hospitalist Physical - Constitutional Vitals: Temp Pulse Resp BP Pulse Ox 98.2 F 103 H 18 121/77 94 09/08/18 08:10 09/08/18 08:10 09/08/18 08:10 09/08/18 08:10 09/08/18 08:10 General appearance: Present: no acute distress, well-nourished - EENT Eyes: Present: PERRL, EOM intact ENT: hearing intact, clear oral mucosa, dentition normal - Neck Neck: Present: supple, normal ROM - Respiratory Respiratory effort: normal Respiratory: bilateral: CTA - Cardiovascular Rhythm: regular Heart Sounds: Present: S1 & S2. Absent: gallop, rub - Extremities Extremities: no ischemia, No edema, Full ROM - Abdominal General gastrointestinal: soft, non-tender, non-distended, normal bowel sounds - Integumentary Integumentary: Present: clear, warm, dry - Neurologic Neurologic: CNII-XII intact, moves all extremities Results - Labs CBC & Chem 7: 09/06/18 04:24 09/06/18 04:24 Labs: Laboratory Last Values WBC 4.7 K/mm3 (4.5-11.0) 09/06/18 04:24 RBC 3.89 M/mm3 (3.65-5.03) 09/06/18 04:24 Hgb 11.2 gm/dl (11.8-15.2) L 09/06/18 04:24 Hct 33.5 % (35.5-45.6) L D 09/06/18 04:24 MCV 86 fl (84-94) 09/06/18 04:24 MCH 29 pg (28-32) 09/06/18 04:24 MCHC 34 % (32-34) 09/06/18 04:24 RDW 13.9 % (13.2-15.2) 09/06/18 04:24 Plt Count 233 K/mm3 (140-440) 09/06/18 04:24 Lymph % (Auto) 15.0 % (13.4-35.0) 09/06/18 04:24 [place] % (Auto) 10.6 % (0.0-7.3) H 09/06/18 04:24 Eos % (Auto) 9.2 % (0.0-4.3) H 09/06/18 04:24 Baso % (Auto) 0.7 % (0.0-1.8) 09/06/18 04:24 Lymph # 0.7 K/mm3 (1.2-5.4) L 09/06/18 04:24 [place] # 0.5 K/mm3 (0.0-0.8) 09/06/18 04:24 Eos # 0.4 K/mm3 (0.0-0.4) 09/06/18 04:24 Baso # 0.0 K/mm3 (0.0-0.1) 09/06/18 04:24 Seg Neutrophils % 64.5 % (40.0-70.0) 09/06/18 04:24 Seg Neutrophils # 3.0 K/mm3 (1.8-7.7) 09/06/18 04:24 PT 15.1 Sec. (12.2-14.9) H 09/05/18 04:47 INR 1.22 (0.87-1.13) H 09/05/18 04:47 APTT 33.2 Sec. (24.2-36.6) 09/05/18 04:47 Sodium 138 mmol/L (137-145) 09/06/18 04:24 Potassium 4.5 mmol/L (3.6-5.0) 09/06/18 04:24 Chloride 105.0 mmol/L (98-107) 09/06/18 04:24 Carbon Dioxide 22 mmol/L (22-30) 09/06/18 04:24 16 mmol/L 09/06/18 04:24 BUN 17 mg/dL (9-20) 09/06/18 04:24 1.0 mg/dL (0.8-1.5) 09/06/18 04:24 Estimated GFR > 60 ml/min 09/06/18 04:24 17 % 09/06/18 04:24 Glucose 115 mg/dL (75-100) H 09/06/18 04:24 POC Glucose 144 (70-105) H 09/07/18 16:49 Lactic Acid 1.30 mmol/L (0.7-2.0) 09/05/18 04:47 Calcium 8.1 mg/dL (8.4-10.2) L 09/06/18 04:24 0.30 mg/dL (0.1-1.2) 09/05/18 03:01 AST 18 units/L (5-40) 09/05/18 03:01 ALT 16 units/L (7-56) 09/05/18 03:01 50 units/L (35-129) 09/05/18 03:01 7.0 g/dL (6.3-8.2) 09/05/18 03:01 3.5 g/dL (3.9-5) L 09/05/18 03:01 1.0 % 09/05/18 03:01 Yellow (Yellow) 09/05/18 04:10 Cloudy (Clear) 09/05/18 04:10 5.0 (5.0-7.0) 09/05/18 04:10 Ur Specific [place] 1.024 (1.003-1.030) 09/05/18 04:10 30 mg/dl mg/dL (Negative) 09/05/18 04:10 Neg mg/dL (Negative) 09/05/18 04:10 Tr mg/dL (Negative) 09/05/18 04:10 Lg (Negative) 09/05/18 04:10 Neg (Negative) 09/05/18 04:10 Neg (Negative) 09/05/18 04:10 4.0 mg/dL (<2.0) 09/05/18 04:10 Ur Leukocyte Esterase Lg (Negative) 09/05/18 04:10 > 182.0 /HPF (0.0-6.0) H 09/05/18 04:10 > 182.0 /HPF (0.0-6.0) 09/05/18 04:10 U Epithel Cells (Auto) < 1.0 /HPF (0-13.0) 09/05/18 04:10 3+ /HPF 09/05/18 04:10 Blood Type O POSITIVE 09/05/18 04:55 Antibody Screen Negative 09/05/18 04:55 Active Medications - Current Medications Current Medications: Generic Name Dose Route Start Last Admin Trade Name Freq PRN Reason Stop Dose Admin Acetaminophen 650 mg 09/05/18 05:02 09/06/18 23:09 Tylenol PO 650 mg Q4H PRN Administration Pain MILD(1-3)/Fever >100.5/MEZA Ceftriaxone Sodium 1 gm in 50 mls @ 100 mls/hr 09/05/18 05:23 09/08/18 10:10 Rocephin/Ns 1 Gm/50 Ml IV 100 mls/hr Q24HR ROHIT Administration Protocol Lorazepam 1 mg 09/05/18 10:30 09/05/18 10:24 Ativan PO 1 mg Q6H PRN Administration Agitation Ondansetron HCl 4 mg 09/05/18 05:02 Zofran IV Q8H PRN Nausea And Vomiting Pantoprazole Sodium 40 mg 09/07/18 10:00 09/08/18 10:10 Protonix PO 40 mg DAILY ROHIT Administration Sodium Chloride 10 ml 09/05/18 10:00 09/08/18 10:10 Sodium Chloride Flush Syringe 10 Ml IV 10 ml BID ROHIT Administration Sodium Chloride 10 ml 09/05/18 05:02 Sodium Chloride Flush Syringe 10 Ml IV PRN PRN LINE FLUSH Nutrition/Malnutrition Assess - Dietary Evaluation Nutrition/Malnutrition Findings: Nutrition Notes Start: 09/06/18 17:12 Freq: Status: Active Protocol: Document 09/06/18 17:12 RM (Rec: 09/06/18 17:20 RM [id number]) Nutrition Notes Need for Assessment generated from: MD Order Initial or Follow up Assessment Current Diagnosis Coronary Artery Disease, Diabetes,Hypertension Other Pertinent Diagnosis Prostate cancer, Parkinsons, Coffee ground emesis, UTI, GI bleed Current Diet Pureed Labs/Tests Reviewed Pertinent Medications Reviewed Height 6 ft Weight 77.11 kg [place] Body Weight (kg) 80.90 BMI 23.0 Subjective/Other Information Screened for difficulty chewing. Pt stated that his appetite is good and that he eats <50% of his meals. Denied N/V. Pt denied chewing difficulty but admitted to using dentures. Per ST note pt daughter is going to bring pt's dentures to pt. Percent of energy/protein needs met: 49%/49% Burn Absent Trauma Absent #1 Nutrition Diagnosis Inadequate oral intake Etiology chewing difficulty As Evidenced by Signs and Symptoms pt statement brant the eats <50% of his meals Is patient on ventilator? No Is Patient Ambulatory and/or Out of Bed No REE-([facility]-confined to bed) [phone] Calculation Used for Recommendations [facility] Additional Notes Protein Needs: 77-93g (1-1.2g/ kg) Fluid Needs: 1 ml/kcal Nutrition Intervention Change Diet Order: Advance diet when pt receives dentures Add Supplement/Snack (indicate name/kcal Glucerna 1 daily /protein ) Provides kCal: 220 Provides Protein (gm) 10 Goal #1 Diet advancement Goal #2 Meet at least 75% of calorie and protein needs via PO and ONS intakes Anticipated Discharge Needs: Unable to determine at this time Follow-Up By: 09/10/18 Additional Comments Follow for PO and ONS intakes
[2018-09-09 05:48] LABS: Basophils % (Auto) 0.8 % (0.0-1.8); Eosinophils # (Auto) 0.3 K/mm3 (0.0-0.4); Eosinophils % (Auto) 7.1 % (0.0-4.3); Hematocrit 33.2 % (35.5-45.6); Hemoglobin 11.3 gm/dl (11.8-15.2); Lymphocytes # (Auto) 0.9 K/mm3 (1.2-5.4); Lymphocytes % (Auto) 18.9 % (13.4-35.0); Mean Corpuscular HGB Conc 34 % (32-34); Mean Corpuscular Volume 85 fl (84-94); Monocytes # (Auto) 0.4 K/mm3 (0.0-0.8); Monocytes % (Auto) 8.1 % (0.0-7.3); Platelet Count 286 K/mm3 (140-440); Red Blood Count 3.89 M/mm3 (3.65-5.03); Red Cell Distribution Width 14.4 % (13.2-15.2)
--- NOTE | 2018-09-09 09:54 | Progress Note ---
Assessment and Plan Assessment and plan: Coffee-ground emesis. Patient with no evidence of GI bleeding currently. GI feels that given multiple medical comorbidities, pt higher risk for endoscopic intervention. Therefore GI recommends PPI and monitor clinically. H & H is stable. Nausea and vomiting. Resolved. Hypertension. Resume antihypertensive medications. Diabetes mellitus type 2. Continue Accu-Cheks and sliding scale regular insulin History of prostate cancer. Coronary artery disease. Parkinson's disease. PT/OT. Disposition. Anticipate discharge Monday to [place] - Patient Problems (1) Coffee ground emesis Current Visit: Yes Status: Acute History Interval history: This is a 78 year old gentleman with Parkinsons, hypertension, diabetes, prostate cancer, CAD was brought to the ER because he was noted to have coffee ground emesis. He was just discharged from [place] after admission for AMS, no blood thinners, very distant history PUD Family and nursing denies melena, Hospitalist Physical - Constitutional Vitals: Temp Pulse Resp BP Pulse Ox 98.0 F 94 H 18 121/75 84 09/09/18 07:42 09/09/18 07:42 09/09/18 07:42 09/09/18 07:42 09/09/18 07:42 General appearance: Present: no acute distress, well-nourished - EENT Eyes: Present: PERRL, EOM intact ENT: hearing intact, clear oral mucosa, dentition normal - Neck Neck: Present: supple, normal ROM - Respiratory Respiratory effort: normal Respiratory: bilateral: CTA - Cardiovascular Rhythm: regular Heart Sounds: Present: S1 & S2. Absent: gallop, rub - Extremities Extremities: no ischemia, No edema, Full ROM - Abdominal General gastrointestinal: soft, non-tender, non-distended, normal bowel sounds - Integumentary Integumentary: Present: clear, warm, dry - Neurologic Neurologic: CNII-XII intact, moves all extremities Results - Labs CBC & Chem 7: 09/09/18 04:15 09/06/18 04:24 Labs: Laboratory Last Values WBC 4.9 K/mm3 (4.5-11.0) 09/09/18 04:15 RBC 3.89 M/mm3 (3.65-5.03) 09/09/18 04:15 Hgb 11.3 gm/dl (11.8-15.2) L 09/09/18 04:15 Hct 33.2 % (35.5-45.6) L 09/09/18 04:15 MCV 85 fl (84-94) 09/09/18 04:15 MCH 29 pg (28-32) 09/09/18 04:15 MCHC 34 % (32-34) 09/09/18 04:15 RDW 14.4 % (13.2-15.2) 09/09/18 04:15 Plt Count 286 K/mm3 (140-440) 09/09/18 04:15 Lymph % (Auto) 18.9 % (13.4-35.0) 09/09/18 04:15 [place] % (Auto) 8.1 % (0.0-7.3) H 09/09/18 04:15 Eos % (Auto) 7.1 % (0.0-4.3) H 09/09/18 04:15 Baso % (Auto) 0.8 % (0.0-1.8) 09/09/18 04:15 Lymph # 0.9 K/mm3 (1.2-5.4) L 09/09/18 04:15 [place] # 0.4 K/mm3 (0.0-0.8) 09/09/18 04:15 Eos # 0.3 K/mm3 (0.0-0.4) 09/09/18 04:15 Baso # 0.0 K/mm3 (0.0-0.1) 09/09/18 04:15 Seg Neutrophils % 65.1 % (40.0-70.0) 09/09/18 04:15 Seg Neutrophils # 3.2 K/mm3 (1.8-7.7) 09/09/18 04:15 PT 15.1 Sec. (12.2-14.9) H 09/05/18 04:47 INR 1.22 (0.87-1.13) H 09/05/18 04:47 APTT 33.2 Sec. (24.2-36.6) 09/05/18 04:47 Sodium 138 mmol/L (137-145) 09/06/18 04:24 Potassium 4.5 mmol/L (3.6-5.0) 09/06/18 04:24 Chloride 105.0 mmol/L (98-107) 09/06/18 04:24 Carbon Dioxide 22 mmol/L (22-30) 09/06/18 04:24 16 mmol/L 09/06/18 04:24 BUN 17 mg/dL (9-20) 09/06/18 04:24 1.0 mg/dL (0.8-1.5) 09/06/18 04:24 Estimated GFR > 60 ml/min 09/06/18 04:24 17 % 09/06/18 04:24 Glucose 115 mg/dL (75-100) H 09/06/18 04:24 POC Glucose 144 (70-105) H 09/07/18 16:49 Lactic Acid 1.30 mmol/L (0.7-2.0) 09/05/18 04:47 Calcium 8.1 mg/dL (8.4-10.2) L 09/06/18 04:24 0.30 mg/dL (0.1-1.2) 09/05/18 03:01 AST 18 units/L (5-40) 09/05/18 03:01 ALT 16 units/L (7-56) 09/05/18 03:01 50 units/L (35-129) 09/05/18 03:01 7.0 g/dL (6.3-8.2) 09/05/18 03:01 3.5 g/dL (3.9-5) L 09/05/18 03:01 1.0 % 09/05/18 03:01 Yellow (Yellow) 09/05/18 04:10 Cloudy (Clear) 09/05/18 04:10 5.0 (5.0-7.0) 09/05/18 04:10 Ur Specific [place] 1.024 (1.003-1.030) 09/05/18 04:10 30 mg/dl mg/dL (Negative) 09/05/18 04:10 Neg mg/dL (Negative) 09/05/18 04:10 Tr mg/dL (Negative) 09/05/18 04:10 Lg (Negative) 09/05/18 04:10 Neg (Negative) 09/05/18 04:10 Neg (Negative) 09/05/18 04:10 4.0 mg/dL (<2.0) 09/05/18 04:10 Ur Leukocyte Esterase Lg (Negative) 09/05/18 04:10 > 182.0 /HPF (0.0-6.0) H 09/05/18 04:10 > 182.0 /HPF (0.0-6.0) 09/05/18 04:10 U Epithel Cells (Auto) < 1.0 /HPF (0-13.0) 09/05/18 04:10 3+ /HPF 09/05/18 04:10 Blood Type O POSITIVE 09/05/18 04:55 Antibody Screen Negative 09/05/18 04:55 Active Medications - Current Medications Current Medications: Generic Name Dose Route Start Last Admin Trade Name Freq PRN Reason Stop Dose Admin Acetaminophen 650 mg 09/05/18 05:02 09/06/18 23:09 Tylenol PO 650 mg Q4H PRN Administration Pain MILD(1-3)/Fever >100.5/MEZA Ceftriaxone Sodium 1 gm in 50 mls @ 100 mls/hr 09/05/18 05:23 09/08/18 10:10 Rocephin/Ns 1 Gm/50 Ml IV 100 mls/hr Q24HR ROHIT Administration Protocol Lorazepam 1 mg 09/05/18 10:30 09/05/18 10:24 Ativan PO 1 mg Q6H PRN Administration Agitation Ondansetron HCl 4 mg 09/05/18 05:02 Zofran IV Q8H PRN Nausea And Vomiting Pantoprazole Sodium 40 mg 09/07/18 10:00 09/08/18 10:10 Protonix PO 40 mg DAILY ROHIT Administration Sodium Chloride 10 ml 09/05/18 10:00 09/08/18 21:04 Sodium Chloride Flush Syringe 10 Ml IV 10 ml BID ROHIT Administration Sodium Chloride 10 ml 09/05/18 05:02 Sodium Chloride Flush Syringe 10 Ml IV PRN PRN LINE FLUSH Nutrition/Malnutrition Assess - Dietary Evaluation Nutrition/Malnutrition Findings: Nutrition Notes Start: 09/06/18 17 :12 Freq: Status: Active Protocol: Document 09/06/18 17:12 RM (Rec: 09/06/18 17:20 RM [id number]) Nutrition Notes Need for Assessment generated from: MD Order Initial or Follow up Assessment Current Diagnosis Coronary Artery Disease, Diabetes,Hypertension Other Pertinent Diagnosis Prostate cancer, Parkinsons, Coffee ground emesis, UTI, GI bleed Current Diet Pureed Labs/Tests Reviewed Pertinent Medications Reviewed Height 6 ft Weight 77.11 kg [place] Body Weight (kg) 80.90 BMI 23.0 Subjective/Other Information Screened for difficulty chewing. Pt stated that his appetite is good and that he eats <50% of his meals. Denied N/V. Pt denied chewing difficulty but admitted to using dentures. Per ST note pt daughter is going to bring pt's dentures to pt. Percent of energy/protein needs met: 49%/49% Burn Absent Trauma Absent #1 Nutrition Diagnosis Inadequate oral intake Etiology chewing difficulty As Evidenced by Signs and Symptoms pt statement brant the eats <50% of his meals Is patient on ventilator? No Is Patient Ambulatory and/or Out of Bed No [facility] 2701.612 Calculation Used for Recommendations [facility] Additional Notes Protein Needs: 77-93g (1-1.2g/ kg) Fluid Needs: 1 ml/kcal Nutrition Intervention Change Diet Order: Advance diet when pt receives dentures Add Supplement/Snack (indicate name/kcal Glucerna 1 daily /protein ) Provides kCal: 220 Provides Protein (gm) 10 Goal #1 Diet advancement Goal #2 Meet at least 75% of calorie and protein needs via PO and ONS intakes Anticipated Discharge Needs: Unable to determine at this time Follow-Up By: 09/10/18 Additional Comments Follow for PO and ONS intakes
[2018-09-09] MEDS: PROTONIX PO SCH (10:23)
[2018-09-09] MEDS: ROCEPHIN/NS 1 GM/50 ML 1 GM/50 ML BAG IV SCH (10:23)
[2018-09-09] MEDS: SODIUM CHLORIDE FLUSH SYRINGE 10 ML IV SCH ×2 (10:23→22:00)
[2018-09-10] MEDS: ROCEPHIN/NS 1 GM/50 ML 1 GM/50 ML BAG IV SCH (09:32)
[2018-09-10] MEDS: PROTONIX PO SCH (09:33)
[2018-09-10] MEDS: SODIUM CHLORIDE FLUSH SYRINGE 10 ML IV SCH (09:33)
[2018-09-10 12:10] VITALS: BP 110/67
--- NOTE | 2018-09-10 18:49 | Discharge Summary ---
Providers - Providers Date of Admission: 09/05/18 05:11 Date of discharge: 09/10/18 Attending physician: KELLIE FRANCIS 09/05/18 04:29 Consult to Physician [CONS] Stat Comment: Consulting Provider: JAYLEEN GUARDADO Physician Instructions: Reason For Exam: GI BLEED 09/05/18 10:24 Speech Therapy Evaluation and Treat [CONS] Routine Reason For Exam: . 09/07/18 09:43 Occupational Therapy Evaluate and Treat [CONS] Stat Comment: Reason For Exam: weakness Physical Therapy Evaluation and Treat [CONS] Stat Comment: Reason For Exam: weakness Primary care physician: [employer] Hospitalization Reason for admission: emeses Condition: Stable Hospital course: Providers Date of Admission: 09/05/18 05:11 Date of discharge: 09/07/18 Attending physician: MARLINE HUBER 09/05/18 04:29 Consult to Physician [CONS] Stat Comment: Consulting Provider: JAYLEEN GUARDADO Physician Instructions: Reason For Exam: GI BLEED 09/05/18 10:24 Speech Therapy Evaluation and Treat [CONS] Routine Reason For Exam: . Primary care physician: [employer] Hospitalization Reason for admission: ? coffee ground emesis Condition: Stable Hospital course: This is a 78 year old gentleman with Parkinsons, hypertension, diabetes, prostate cancer, CAD was brought to the ER because he was noted to have coffee ground emesis. He was just discharged from [place] after admission for AMS, no blood thinners, very distant history PUD. [facility] had questionable coffee-ground emesis and was transported to our facility for further evaluation. Family and nursing denied melena, Hgb remained normal throughout hospitalization. GI feels that given multiple medical comorbidities, pt higher risk for endoscopic intervention. GI felt the patient could discharge and have further follow-up as an outpatient. Dedicated discharge time 32 minutes. Disposition: DC/[place]-03 SNF W [facility] Time spent for discharge: 32 - Discharge Diagnoses (1) Coffee ground emesis Status: Acute Core Measure Documentation - Palliative Care Palliative Care/ Comfort Measures: Not Applicable - Core Measures Any of the following diagnoses?: none Disposition: DC/TX-03 SNF W [facility] C[facility] Core Measure Documentation - Palliative Care Palliative Care/ Comfort Measures: Not Applicable - Core Measures Any of the following diagnoses?: none Exam - Constitutional Vitals: Temp Pulse Resp BP Pulse Ox 98.5 F 80 18 110/67 96 09/10/18 11:27 09/10/18 11:27 09/10/18 11:27 09/10/18 11:30 09/10/18 11:27 General appearance: Present: no acute distress - EENT Eyes: Present: PERRL, EOM intact ENT: hearing intact - Neck Neck: Present: supple - Respiratory Respiratory effort: normal Respiratory: bilateral: CTA - Cardiovascular Rhythm: regular Heart Sounds: Present: S1 & S2 - Extremities Extremities: No edema - Abdominal General gastrointestinal: Present: soft, non-tender Male genitourinary: Present: deferred - Rectal Rectal Exam: deferred - Integumentary Integumentary: Present: clear - Psychiatric Psychiatric: appropriate mood/affect - Neurologic Neurologic: moves all extremities, other (slurred speech) Plan Activity: up only with assistance, fall precautions Diet: regular, low fat Follow up with: PRIMARY CARE, [Primary Care Provider] - 3-5 Days Forms: Accompanied Note
== END 2018-09-10 12:40 | DRG 872 ==
LOC: ED 02:30 → 4A 05:11
PROVIDERS: ADMIT Internal Medicine; ATTEND Internal Medicine
DX: A41.9 Sepsis, unspecified organism (principal); N39.0 Urinary tract infection, site not specified; K92.0 Hematemesis; I10 Essential (primary) hypertension; G20 Parkinson's disease; E11.9 Type 2 diabetes mellitus without complications; C61 Malignant neoplasm of prostate; I25.10 Atherosclerotic heart disease of native coronary artery without angina pectoris; Z82.49 Family history of ischemic heart disease and other diseases of the circulatory system; Z79.82 Long term (current) use of aspirin; Z79.899 Other long term (current) drug therapy; Z87.442 Personal history of urinary calculi; Z87.891 Personal history of nicotine dependence; Z95.5 Presence of coronary angioplasty implant and graft; Z79.84 Long term (current) use of oral hypoglycemic drugs
CPT/HCPCS: 36415; 71045; 80048; 80053; 81001; 82140; 82271; 82962; 85025; 85610; 85730; 86850; 86900; 86901; 87040; 87116; 93005; 93010; 96361; 96365; 96367; 96375; G0378; C9113; J0696; J2405; J2543; J7030